=== PATIENT | male | born 1960 | race Caucasian/White ===

== ENCOUNTER 2016-08-03 12:52 | Inpatient (IN) | payer MEDICARE ==
[~2016-08-03] VITALS: Ht 188 cm; Wt 75.6 kg
[~2016-08-03 12:52] MED LIST: /MIRT30TA OR; AMBI10TA PO; ATOM40CA OR; EFFE150C OR; EFFEXOR PO; KEPP1000 PO; KEPP250T5 PO; NAPR500T OR; No home medications; PAXI20TA3 PO; PROZ10CA7 PO; TOPA100T8 PO; TOPI100T OR; TRAZ100T2 PO; ZOMI2.5T4 PO
[2016-08-03 14:07] LABS: BASO # 0.1 K/mm3 (0.0-0.2); BASO % 0.8 % (0.0-1.0); EOS # 0.2 K/mm3 (0.0-0.50); EOS % 1.8 % (0.0-3.0); LARGE UNSTAINED CELL # 0.2 K/mm3 (0.0-0.4); LARGE UNSTAINED CELL % 1.9 % (0.0-4.0); LYMPH # 2.8 K/mm3 (1.5-4.5); LYMPH % 29.2 % (24.0-44.0); MEAN CORPUSCULAR HEMOGLOBIN 31.6 pg (27.0-33.0); MEAN CORPUSCULAR HGB CONC 33.8 g/dl (32.0-36.5); MEAN CORPUSCULAR VOLUME 93.5 fl (80.0-96.0); MONO # 0.5 K/mm3 (0.0-0.8); NEUTROPHILS # 5.9 K/mm3 (1.8-7.7); NEUTROPHILS % 61.4 % (36.0-66.0); PLATELET COUNT, AUTOMATED 261 k/mm3 (150-450); RED CELL DISTRIBUTION WIDTH 12.4 % (11.5-14.5); WHITE BLOOD COUNT 9.7 K/mm3 (4.0-10.0)
--- NOTE | 2016-08-03 14:24 | REP ---
PORTABLE CHEST, TWO VIEWS: HISTORY: Chest pain. COMPARISON: 10/17/2014 The lungs are hyperinflated. An increase in the interstitial markings is present in the lungs. The heart is normal in size. The pulmonary vasculature is normal in appearance. IMPRESSION: COPD. Signed by Vipin Delarosa MD 08/03/2016 02:28 P
[2016-08-03 14:31] LABS: ANION GAP 10 MEQ/L (8-16); BLOOD UREA NITROGEN 12 MG/DL (7-18); CARBON DIOXIDE LEVEL 26 MEQ/L (21-32); CHLORIDE LEVEL 104 MEQ/L (98-107); CREATININE FOR GFR 1.13 MG/DL (0.70-1.30); GLOMERULAR FILTRATION RATE > 60.0 (>56); GLUCOSE, FASTING 90 MG/DL (70-105); POTASSIUM SERUM 3.1 MEQ/L (3.5-5.1); SODIUM LEVEL 140 MEQ/L (136-145)
[2016-08-03 15:52] LABS: AST/SGOT 13 U/L (15-37); BILIRUBIN,TOTAL 0.5 MG/DL (0.2-1.0); TOTAL PROTEIN 7.4 GM/DL (6.4-8.2)
[2016-08-03 15:54] LABS: INR 1.19
[2016-08-03 16:05] LABS: ALKALINE PHOSPHATASE 71 U/L (45-117); ALT/SGPT 14 U/L (12-78); BILIRUBIN,DIRECT 0.1 MG/DL (0.0-0.2)
--- NOTE | 2016-08-03 16:12 | REP ---
CT Head without contrast HISTORY: Seizure COMPARISON: 12/24/2015 There is no intraparenchymal hemorrhage, acute infarct, mass or midline shift. The ventricular system is normal in appearance. There is no extra cerebral collection. There is no fracture. The visualized sinuses are clear. IMPRESSION: There is no intracranial lesion. Signed by Vipin Delarosa MD 08/03/2016 04:04 P
[2016-08-03] MEDS ORDERED: POTASSIUM CHLORIDE 10 MEQ SR TABLET PO ONE (16:45)
[2016-08-03 17:09] LABS: CONTROL LINE INT CTR LINE PRESENT; METHADONE URINE NEGATIVE (NEGATIVE); TRICYCLIC ANTIDEPRESS URINE NEGATIVE (NEGATIVE)
[2016-08-03] MEDS ORDERED: diphenhydrAMINE 25 MG CAP PO ONE (17:15)
[2016-08-03] MEDS ORDERED: METOCLOPRAMIDE 10 MG TAB PO ONE (17:15)
[2016-08-03] MEDS ORDERED: DIVALPROEX 500MG *ER* TAB PO ONE (17:15)
[2016-08-03] MEDS ORDERED: diphenhydrAMINE 50 MG CAP PO ONE (17:15)
[2016-08-03] MEDS ORDERED: levETIRAcetam 250MG TABLET (KEPPRA) PO ONE (18:00)
[2016-08-03] MEDS ORDERED: KEPP500T6 PO (19:00)
[2016-08-03 20:44] VITALS: BP 143/83
[2016-08-03] MEDS ORDERED: MAALOX 30 ML SUSP *UDC PO PRN (21:30)
[2016-08-03] MEDS ORDERED: QUEtiapine FUMARATE 50 MG TAB PO ONE (21:30)
[2016-08-03 21:47] LABS: ALBUMIN 3.8 GM/DL (3.2-5.2); ALBUMIN/GLOBULIN RATIO 1.06 (1.00-1.93)
[2016-08-04 06:27] VITALS: BP 113/60
[2016-08-04] MEDS: NICOTINE 14 MG/24 HR TRANSDERMAL TD SCH (08:09)
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
[2016-08-04] MEDS ORDERED: traZODone 50 MG TAB PO PRN (12:30)
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
[2016-08-04] MEDS ORDERED: VENLAFAXINE **XR** 37.5 MG CAPSULE PO ONE (12:45)
[2016-08-04 18:00] VITALS: BP 142/90
[2016-08-04] MEDS ORDERED: levETIRAcetam 250MG TABLET (KEPPRA) PO ONE (18:45)
[2016-08-04] MEDS ORDERED: levETIRAcetam 250MG TABLET (KEPPRA) PO SCH (21:00)
--- NOTE | 2016-08-04 21:54 | ECGEPIP ---
Stationary ECG Study [facility] Test Date: 2016-08-04 Pat Name: BHARAT ALBER Department: Room: [place] [address] Gender: M Senior Branch Manager: : 1960 Requested By: Gabi Hoffman Order Number: [id number] Reading MD: Bharat Russell Measurements Intervals [place] Rate: 55 P: 65 OR: 149 QRS: 75 QRSD: 102 T: 64 QT: 441 QTc: 425 Interpretive Statements SINUS BRADYCARDIA MINIMAL VOLTAGE CRITERIA FOR LVH, CONSIDER NORMAL VARIANT Septal Q waves previously noted on tracing from 12-24-15 Electronically Signed On 08-04-2016 21:53:57 EST by Bharat Russell
[2016-08-05 07:14] VITALS: BP 111/57
[2016-08-05] MEDS: NICOTINE 14 MG/24 HR TRANSDERMAL TD SCH (08:17)
[2016-08-05] MEDS: levETIRAcetam 250MG TABLET (KEPPRA) PO SCH ×2 (08:18→20:13)
[2016-08-05] MEDS: VENLAFAXINE **XR** 75MG CAPSULE PO SCH (08:18)
[2016-08-05] MEDS ORDERED: INFLUENZA QUADRIVALENT PF VACCINE 0.5ML SYRINGE/VIAL (90686) IM ONE (09:00)
--- NOTE | 2016-08-05 13:27 | ECGEPIP ---
Stationary ECG Study [facility] - ED Test Date: 2016-08-03 Pat Name: ROMEL CAMPO Department: Room: - Gender: M Pot Fireman: jshan : 1960 Requested By: Chacha Setin Order Number: [id number] Reading MD: Chacha Stein Measurements Intervals [place] Rate: 63 P: 43 GA: 126 QRS: 57 QRSD: 104 T: 45 QT: 427 QTc: 439 Interpretive Statements SINUS RHYTHM ARTIFACT DELAYED R PROGRESSION SIMILAR 12/24/15 Electronically Signed On 08-05-2016 13:27:30 EST by Chacha Stein
[2016-08-05] MEDS: ACETAMINOPHEN TAB 650MG DOSE (2X325MG) PO PRN (17:28)
[2016-08-05 18:00] VITALS: BP 146/71
[2016-08-05] MEDS: MOM 30ML SUSPENSION UDC PO PRN (20:56)
--- NOTE | 2016-08-06 01:58 | IPN ---
DATE: 08/05/2016 56-year-old male with history of depression and polysubstance dependency admitted with symptoms of depression, suicidal ideation, and 10-pound weight loss. MEDICATIONS: - Effexor XR 37.5 mg by mouth every morning - trazodone 50 mg as needed for insomnia SUBJECTIVE: "I feel about the same. I could not sleep well." OBJECTIVE: Patient continues depressed, anxious with psychomotor retardation, sad, restricted facial expression. No evidence of psychotic symptoms. No auditory or visual hallucinations or delusions. Patient is tolerating well Effexor. MENTAL STATUS EXAMINATION: Patient is dressed in [facility]. Patient is cooperative during exam, has poor eye contact, speech is soft and monotone. Mood is depressed and anxious. Affect is restricted. No delusions or hallucinations. Memory is fair. Patient is fully oriented. Concentration is intact. Thinking is logical. Patient is able to contract for safety during the hospitalization and has denied suicidal or homicidal ideation during the interview. Insight and judgment is fair. ASSESSMENT: 1. Depression. 2. Substance abuse, marijuana dependency. PLAN: 1. Increase Effexor to 75 mg by mouth every morning. 2. Continue with trazodone 50 mg by mouth at bedtime as needed for insomnia. 3. Continue medication management, individual and group therapy
[2016-08-06 06:43] VITALS: BP 137/63
[2016-08-06] MEDS: ACETAMINOPHEN TAB 650MG DOSE (2X325MG) PO PRN (08:59)
[2016-08-06] MEDS: levETIRAcetam 250MG TABLET (KEPPRA) PO SCH ×2 (09:00→20:21)
[2016-08-06] MEDS: NICOTINE 14 MG/24 HR TRANSDERMAL TD SCH (09:00)
[2016-08-06] MEDS: VENLAFAXINE **XR** 75MG CAPSULE PO SCH (09:00)
[2016-08-06 18:10] VITALS: BP 163/88
[2016-08-06] MEDS: MOM 30ML SUSPENSION UDC PO PRN (21:30)
[2016-08-07 06:50] VITALS: BP 140/74
[2016-08-07] MEDS: NICOTINE 14 MG/24 HR TRANSDERMAL TD SCH (08:59)
[2016-08-07] MEDS: VENLAFAXINE **XR** 75MG CAPSULE PO SCH (08:59)
[2016-08-07] MEDS: levETIRAcetam 250MG TABLET (KEPPRA) PO SCH ×2 (08:59→21:44)
--- NOTE | 2016-08-07 09:33 | IPN ---
DATE: 08/06/2016 56-year-old male with history of depression and polysubstance dependency admitted with symptoms of depression, suicidal ideation and 10 pound weight loss. MEDICATIONS: - Effexor XR 75 mg by mouth every morning - trazodone 50 mg by mouth nightly as needed for insomnia SUBJECTIVE: "I feel very weak." OBJECTIVE: No major changes. Patient continues with some degree of somatization. Patient continues depressed and anxious with psychomotor retardation, sad restricted facial expression, no psychotic symptoms, no auditory or visual hallucinations, no paranoid delusions. Patient is tolerating well the medication. MENTAL STATUS EXAMINATION: Patient is dressed in [facility]. Patient is cooperative during the interview, has fair eye contact. His speech is slow and monotone. Mood is depressed and anxious. Affect is restricted. Patient denies auditory or visual hallucinations. No delusions. Short-term and long-term memory are fair. Patient is fully oriented. Associations are intact. Thinking is logical. Thought content is appropriate. Patient is able to contract for safety and denies suicidal or homicidal ideation during the interview. Insight and judgment is limited. ASSESSMENT: 1. Depression. 2. Substance abuse/marijuana dependence. PLAN: 1. Continue Effexor XR 75 mg by mouth every morning. 2. Continue trazodone as needed for insomnia. 3. Continue medication management, individual and group therapy.
[2016-08-07 18:00] VITALS: BP 149/83
[2016-08-08 06:26] VITALS: BP 133/66
[2016-08-08] MEDS: NICOTINE 14 MG/24 HR TRANSDERMAL TD SCH (08:10)
[2016-08-08] MEDS: levETIRAcetam 250MG TABLET (KEPPRA) PO SCH ×2 (08:10→22:09)
[2016-08-08] MEDS: VENLAFAXINE **XR** 75MG CAPSULE PO SCH (08:10)
[2016-08-08 08:41] LABS: MEAN CORPUSCULAR HEMOGLOBIN 33.2 pg (27.0-33.0); MEAN CORPUSCULAR VOLUME 97.7 fl (80.0-96.0); RED CELL DISTRIBUTION WIDTH 12.6 % (11.5-14.5); WHITE BLOOD COUNT 7.5 K/mm3 (4.0-10.0)
[2016-08-08 09:17] LABS: ANION GAP 8 MEQ/L (8-16); BLOOD UREA NITROGEN 12 MG/DL (7-18); CALCIUM LEVEL 8.5 MG/DL (8.5-10.1); CARBON DIOXIDE LEVEL 28 MEQ/L (21-32); CHLORIDE LEVEL 103 MEQ/L (98-107); CREATININE FOR GFR 1.06 MG/DL (0.70-1.30); GLOMERULAR FILTRATION RATE > 60.0 (>56); GLUCOSE, FASTING 88 MG/DL (70-105); POTASSIUM SERUM 4.7 MEQ/L (3.5-5.1); SODIUM LEVEL 139 MEQ/L (136-145)
[2016-08-08 10:24] VITALS: BP 140/94
[2016-08-08 16:21] VITALS: BP 161/90
[2016-08-08 16:38] VITALS: BP 145/73
[2016-08-08 18:00] VITALS: BP 144/76
--- NOTE | 2016-08-08 19:52 | IPN ---
DATE: 08/07/2016 A 56-year-old male with depression, suicidal ideation, and 10-pound weight loss. MEDICATIONS: - Effexor XR 75 mg by mouth every morning - trazodone 50 mg as needed for insomnia SUBJECTIVE: "Yesterday was very stressful." OBJECTIVE: No major changes. Patient continues to report depression and intermittent suicidal thoughts. Reports high anxiety. He is trying to figure out where he is going to end up living, since he cannot afford to pay the apartment, and department of social work msw ([employer]) is telling him that he does not qualify because he has an income. MENTAL STATUS EXAMINATION: Patient is dressed in [facility]. Patient is cooperative during the interview. Has fair eye contact. Speech is slow and monotone. Mood is depressed and anxious. Affect is restricted. Patient denies auditory or visual hallucinations. No delusions. Short and long-term memory are fair. Patient is fully oriented. Associations are intact. Thinking is logical. Thought content is appropriate. Patient is able to contract for safety and denies suicidal or homicidal ideation during the interview. Insight and judgment are limited. ASSESSMENT: 1. Depression. 2. Substance abuse/marijuana dependency. PLAN: 1. Continue with Effexor XR 75 mg by mouth every morning 2. Continue with trazodone 50 mg by mouth at bedtime as needed for insomnia. 3. Continue medication management, individual and group therapy.
[2016-08-09 06:26] VITALS: BP 131/63
[2016-08-09] MEDS: NICOTINE 14 MG/24 HR TRANSDERMAL TD SCH (09:00)
--- NOTE | 2016-08-09 09:43 | IPN ---
DATE OF SERVICE: 08/08/2016 56-year-old male with history of depression, polysubstance dependence being admitted for symptoms of depression, suicidal ideation and weight loss. MEDICATIONS: - Effexor XR 75 mg by mouth in the morning - trazodone 50 mg by mouth nightly as needed for insomnia SUBJECTIVE: "I am very depressed." OBJECTIVE: The patient is improving slowly. He became very angry and frustrated today when he was discussing his needs with our drug abuse social worker/cyber intel planner. The patient was making statements such as "nobody cares" and was using loud language. It took him significant time to calm down. MENTAL STATUS EXAMINATION: Patient is dressed in [facility]. Patient has poor eye contact. Mood is depressed and anxious. Affect is restricted. No evidence of delusions or hallucinations. Memory is fair. Patient continues to report intermittent suicidal thoughts. Insight and judgment is limited. ASSESSMENT: 1. Depression. 2. Substance abuse. PLAN: 1. Continue with Effexor XR 75 mg by mouth every morning. 2. Continue with trazodone as needed for insomnia. 3. Continue medication management, individual and group therapy.
[2016-08-09] MEDS: levETIRAcetam 250MG TABLET (KEPPRA) PO SCH ×2 (10:53→20:04)
[2016-08-09] MEDS: VENLAFAXINE **XR** 75MG CAPSULE PO SCH (10:53)
[2016-08-09] MEDS: ACETAMINOPHEN TAB 650MG DOSE (2X325MG) PO PRN (10:53)
[2016-08-09] MEDS ORDERED: QUEtiapine FUMARATE 12.5 MG HALF-TAB PO STA (10:59)
[2016-08-09] MEDS: QUEtiapine FUMARATE 12.5 MG HALF-TAB PO PRN (20:03)
[2016-08-09 22:19] VITALS: BP 162/94
--- NOTE | 2016-08-10 06:04 | IPN ---
DATE OF VISIT: 08/09/2016 56-year-old male with history of depression and polysubstance dependency admitted for significant symptoms of depression and suicide ideation. MEDICATIONS: - Effexor XR 75 mg by mouth every morning - trazodone 50 mg by mouth nightly as needed for insomnia SUBJECTIVE: " I have a terrible headache." OBJECTIVE: The patient is staying in bed with his cat Ree and stating that he has a severe headache. Eye contact is very poor. The patient is not engaging in one-to-one contact. The patient reports depression with intermittent suicidal thoughts. The patient reports high anxiety for the last 24 hours. MENTAL STATUS EXAMINATION: The patient is dressed in [facility], has poor eye contact. Mood is depressed and anxious. Affect is restricted. No evidence of delusions or hallucinations. The patient continues to report intermittent suicidal thoughts. Insight and judgment is poor. ASSESSMENT: 1. Depression. 2. Substance abuse. PLAN: 1. Effexor XR 75 mg by mouth every morning. 2. Trazodone as needed for insomnia. 3. Seroquel 12.5 mg by mouth twice a day for anxiety/agitation. 4. Continue with medication management, individual and group therapy.
[2016-08-10 06:13] VITALS: BP 132/83
[2016-08-10] MEDS: IBUPROFEN 600 MG TAB PO PRN (06:30)
[2016-08-10] MEDS: NICOTINE 14 MG/24 HR TRANSDERMAL TD SCH (08:05)
[2016-08-10] MEDS: VENLAFAXINE **XR** 75MG CAPSULE PO SCH (08:06)
[2016-08-10] MEDS: QUEtiapine FUMARATE 12.5 MG HALF-TAB PO PRN ×2 (08:06→13:38)
[2016-08-10] MEDS: levETIRAcetam 250MG TABLET (KEPPRA) PO SCH ×2 (08:06→20:26)
[2016-08-10 18:00] VITALS: BP 140/86
[2016-08-11 06:35] VITALS: BP 115/77
[2016-08-11] MEDS: VENLAFAXINE **XR** 75MG CAPSULE PO SCH (08:06)
[2016-08-11] MEDS: levETIRAcetam 250MG TABLET (KEPPRA) PO SCH ×2 (08:06→20:25)
[2016-08-11] MEDS: QUEtiapine FUMARATE 12.5 MG HALF-TAB PO PRN (08:06)
[2016-08-11] MEDS: IBUPROFEN 600 MG TAB PO PRN ×2 (08:07→20:26)
--- NOTE | 2016-08-11 08:12 | IPN ---
DATE: 08/10/2016 56-year-old male with history of depression and polysubstance dependency admitted with significant symptoms of depression and suicidal thoughts. MEDICATIONS: - Effexor XR 75 mg by mouth every morning - trazodone 50 mg by mouth nightly as needed for insomnia - Seroquel 12.5 mg by mouth three times a day as needed for anxiety/agitation SUBJECTIVE: "I feel very weak and depressed." OBJECTIVE: Patient continues to report high anxiety, depression and feeling stressed by the fact that he has no place to go. Patient is reporting that he no longer can take care of himself and he will need help from now on. Patient reports very low energy and psychomotor retardation. Patient is sleeping better with the help of medication. No evidence of psychotic symptoms. No auditory or visual hallucinations or delusions. Patient has tendency to project blame and is making statements such as "nobody wants to help me." MENTAL STATUS EXAMINATION: Patient dressed in [facility]. Patient has poor eye contact. Speech is slow and monotone. Mood is depressed and anxious. Affect is restricted. No evidence of delusions or hallucinations. Memory is fair. Patient reports intermittent suicidal thoughts. Insight and judgment is limited. ASSESSMENT: 1. Depression. 2. Substance abuse. PLAN: 1. Effexor XR 75 mg by mouth every morning. 2. Trazodone as needed for insomnia. 3. Seroquel 12.5 mg by mouth twice a day for anxiety/agitation.
[2016-08-11] MEDS: NICOTINE 14 MG/24 HR TRANSDERMAL TD SCH (09:00)
[2016-08-11 18:00] VITALS: BP 148/82
--- NOTE | 2016-08-11 19:45 | IPN ---
DATE: 08/11/2016 HISTORY: A 56-year-old male with history of depression, polysubstance dependency, admitted with symptoms of depression and suicidal thoughts. MEDICATIONS: - Effexor XR 75 mg by mouth every morning - trazodone 50 mg by mouth at bedtime as needed for insomnia - Seroquel 12.5 mg by mouth three times a day as needed for anxiety and agitation SUBJECTIVE: "I'm having a headache now." OBJECTIVE: The patient continues to be in bed most of the day. The patient is not interacting with other patients and staff. Facial expression is restricted. The patient reports feeling depressed and having intermittent suicidal thoughts. The patient continues somatizing. No evidence of psychotic symptoms. No auditory or visual hallucinations or delusions. The patient denies side effect from medication. MENTAL STATUS EXAMINATION: The patient is dressed in [facility]. Has poor eye contact. Speech is slow and monotone. Mood is depressed and anxious. Affect is restricted. No evidence of delusions or hallucinations. Memory is fair. Patient is reporting intermittent suicidal thoughts. Insight and judgment are limited. ASSESSMENT: 1. Depression. 2. Substance abuse. PLAN: 1. Effexor XR 75 mg by mouth every morning. 2. Trazodone 50 mg by mouth at bedtime as needed for insomnia. 3. Seroquel 12.5 mg by mouth twice a day as needed for anxiety or agitation.
[2016-08-12 06:39] VITALS: BP 140/78
[2016-08-12] MEDS: NICOTINE 14 MG/24 HR TRANSDERMAL TD SCH (08:03)
[2016-08-12] MEDS: QUEtiapine FUMARATE 12.5 MG HALF-TAB PO PRN (08:07)
[2016-08-12] MEDS: VENLAFAXINE **XR** 75MG CAPSULE PO SCH (08:07)
[2016-08-12] MEDS: levETIRAcetam 250MG TABLET (KEPPRA) PO SCH ×2 (08:07→20:10)
[2016-08-12] MEDS: IBUPROFEN 600 MG TAB PO PRN (08:08)
[2016-08-12 18:00] VITALS: BP 127/66
[2016-08-13 07:04] VITALS: BP 142/67
[2016-08-13] MEDS: NICOTINE 14 MG/24 HR TRANSDERMAL TD SCH (08:03)
[2016-08-13] MEDS: VENLAFAXINE **XR** 75MG CAPSULE PO SCH (08:05)
[2016-08-13] MEDS: levETIRAcetam 250MG TABLET (KEPPRA) PO SCH ×2 (08:05→20:11)
--- NOTE | 2016-08-13 10:28 | IPN ---
DATE: 08/12/2016 56-year-old male with history of depression, polysubstance dependency, admitted for the evaluation of suicidal ideation. MEDICATIONS: - Effexor XR 75 mg by mouth every morning - trazodone 50 mg by mouth nightly as needed for insomnia - Seroquel 12.5 mg by mouth three times a day as needed for anxiety/agitation SUBJECTIVE: "I'm have a headache this morning." OBJECTIVE: No major changes. Patient stays in his room and in bed most of the day, is not interacting with peers or staff. Patient had tendency to project blame. Patient is claiming that he has no longer the ability to care for self. Occupational therapy (OT) consult is in progress. MENTAL STATUS EXAMINATION: Patient is dressed in [facility]. Patient is lying in bed, covering his head with a blanket. Speech is slow and monotone. Mood is depressed and anxious. Affect is restricted. No evidence of delusions or hallucinations. Memory, attention and concentration are fair. Patient continues to report intermittent suicidal thoughts. Denies homicidal ideation. Insight and judgment is limited. ASSESSMENT: 1. Depression. 2. Substance abuse. PLAN: 1. Effexor XR 75 mg by mouth every morning. 2. Trazodone 50 mg by mouth nightly as needed for insomnia. 3. Seroquel 12.5 mg by mouth twice a day as needed for anxiety or agitation.
[2016-08-13 18:00] VITALS: BP 127/85
[2016-08-13] MEDS: LORATADINE 10 MG TAB PO SCH (18:02)
[2016-08-13] MEDS: IBUPROFEN 600 MG TAB PO PRN (18:03)
[2016-08-13] MEDS: QUEtiapine FUMARATE 12.5 MG HALF-TAB PO PRN (22:05)
[2016-08-14 06:48] VITALS: BP 125/71
[2016-08-14] MEDS: IBUPROFEN 600 MG TAB PO PRN ×2 (08:08→20:18)
[2016-08-14] MEDS: VENLAFAXINE **XR** 75MG CAPSULE PO SCH (08:08)
[2016-08-14] MEDS: LORATADINE 10 MG TAB PO SCH (08:08)
[2016-08-14] MEDS: QUEtiapine FUMARATE 12.5 MG HALF-TAB PO PRN ×2 (08:08→20:17)
[2016-08-14] MEDS: levETIRAcetam 250MG TABLET (KEPPRA) PO SCH ×2 (08:09→20:17)
[2016-08-14] MEDS: NICOTINE 14 MG/24 HR TRANSDERMAL TD SCH (09:00)
[2016-08-14 18:00] VITALS: BP 135/68
[2016-08-15 06:27] VITALS: BP 131/70
[2016-08-15] MEDS: QUEtiapine FUMARATE 12.5 MG HALF-TAB PO PRN ×3 (08:00→20:16)
[2016-08-15] MEDS: levETIRAcetam 250MG TABLET (KEPPRA) PO SCH ×2 (08:01→20:16)
[2016-08-15] MEDS: VENLAFAXINE **XR** 75MG CAPSULE PO SCH (08:01)
[2016-08-15] MEDS: LORATADINE 10 MG TAB PO SCH (08:01)
[2016-08-15] MEDS: NICOTINE 14 MG/24 HR TRANSDERMAL TD SCH (08:01)
[2016-08-15] MEDS: IBUPROFEN 600 MG TAB PO PRN ×2 (13:59→22:11)
[2016-08-15 18:00] VITALS: BP 130/82
[2016-08-16 06:37] VITALS: BP 154/92
--- NOTE | 2016-08-16 06:40 | IPN ---
DATE: 08/15/2016 56-year-old male with history of depression, polysubstance abuse, admitted for evaluation of suicidal ideation. SUBJECTIVE: Patient is extremely angry. He states that he has been prescribed Keppra and that is makes him extremely sleepy. He states he was prescribed it previously but never took it once he left the hospital. He states that he needs managed care and would like his Keppra dose reduced. MENTAL STATUS EXAMINATION: Patient was very pleasant with me and laughed. He was initially angry at his treatment but calmed down significantly and discussed his extensive electrical bill and his need for managed care. His appearance was appropriate. His eye contact was good. His speech volume was a bit high. His articulation was good. No difficulties in language. Mood was irritable. Affect was pleasant. He presently denied hallucinations, delusions. Had no difficulties with recent or remote memory. He was fully oriented. Had no loose associations. Denied suicidal or homicidal ideation. Seems to have medium judgment. MEDICATIONS: - Keppra still active at 1500 mg daily twice a day - as needed Seroquel - as needed trazodone - Effexor was at 75 mg in the morning . I increased it to 150 due to his irritable mood and that he sensed that the medication was not helping him. Placement will become an issue due to patient's financial difficulties. I will discuss Keppra dose with Dr. Hoffman in the morning. [facility]
[2016-08-16] MEDS: IBUPROFEN 600 MG TAB PO PRN (08:20)
[2016-08-16] MEDS: levETIRAcetam 250MG TABLET (KEPPRA) PO SCH ×2 (08:20→20:16)
[2016-08-16] MEDS: VENLAFAXINE **XR** 75MG CAPSULE PO SCH (08:20)
[2016-08-16] MEDS: NICOTINE 14 MG/24 HR TRANSDERMAL TD SCH (08:21)
[2016-08-16] MEDS: QUEtiapine FUMARATE 12.5 MG HALF-TAB PO PRN ×2 (08:21→21:52)
[2016-08-16 18:00] VITALS: BP 133/77
--- NOTE | 2016-08-16 19:30 | IPN ---
DATE: 08/16/2016 This is a 56-year-old male with history of depression, polysubstance abuse who is admitted for suicidal ideation. SUBJECTIVE: The patient is less angry today. He is concerned that his current dose is high and it is making him sleepy, but we did discuss that his use of Seroquel in the morning is probably the cause. His concern and our concern is that he was not compliant with Keppra and had seizures prior to this admission. I will consider a mild reduction of the dose until his neurological followup is done. MENTAL STATUS EXAM: The patient continues very pleasant to talk with. His eye contact was good. His speech and volume was normal. His articulation was normal. He had no difficulty with speech or languages. Mood was pleasant. Affect was bright. He denies hallucinations, delusions and had no difficulties with recent or remote memory. His judgment seems fair. He continues to have difficulties with housing issues which was some concern with his discharge planning. MEDICATIONS: His present medications are Keppra 1500 mg twice a day, Seroquel as needed for agitation. He is on venlafaxine 150 mg and his mood is improved. He is on trazodone as needed for insomnia. ASSESSMENT: Depression. Seizure disorder.
[2016-08-17 06:00] VITALS: BP 144/81
[2016-08-17] MEDS: NICOTINE 14 MG/24 HR TRANSDERMAL TD SCH (08:15)
[2016-08-17] MEDS: VENLAFAXINE **XR** 75MG CAPSULE PO SCH (08:15)
[2016-08-17] MEDS: levETIRAcetam 250MG TABLET (KEPPRA) PO SCH ×2 (08:15→20:06)
[2016-08-17] MEDS: IBUPROFEN 600 MG TAB PO PRN ×2 (08:15→20:07)
--- NOTE | 2016-08-17 13:11 | IPN ---
DATE: 08/17/2016 This 56-year-old male with history of depression and polysubstance abuse was admitted for suicidal ideation. The patient continues in a good mood. We discussed again his current dose of Keppra which he was concerned was making him sleepy. I have reduced it by 250 mg for a dose of 1250 mg in the morning and 1500 mg in the evening. He did not use his Seroquel this morning and we are watching his sleepiness. He does not appear sleepy to me, but complains of it. My concern is to find dosages to keep him compliant with Keppra and to make sure his seizures are controlled. MENTAL STATUS EXAMINATION: The patient is pleasant. Eye contact is good. Articulation is normal. He had no difficulty with language or speech. His mood is pleasant. Affect is bright. He denies hallucinations, delusions, obsessions, compulsions or phobias and has had no difficulty with recent, immediate or remote memory. His judgment seems fair. He continues to have difficulty with housing as has been noted. Present medications have not changed except for Keppra dose as discussed. ASSESSMENT: 1. Depression. 2. Seizure disorder.
[2016-08-17] MEDS: QUEtiapine FUMARATE 12.5 MG HALF-TAB PO PRN ×2 (15:50→20:06)
[2016-08-17 18:00] VITALS: BP 144/82
[2016-08-18 06:22] VITALS: BP 120/68
[2016-08-18] MEDS: VENLAFAXINE **XR** 75MG CAPSULE PO SCH (12:45)
[2016-08-18] MEDS: levETIRAcetam 250MG TABLET (KEPPRA) PO SCH ×2 (12:52→22:27)
[2016-08-18] MEDS: NICOTINE 14 MG/24 HR TRANSDERMAL TD SCH (12:53)
[2016-08-18] MEDS: QUEtiapine FUMARATE 12.5 MG HALF-TAB PO PRN ×2 (15:30→22:27)
[2016-08-18] MEDS ORDERED: VENLAFAXINE **XR** 75MG CAPSULE PO ONE (17:00)
[2016-08-18 18:00] VITALS: BP 146/69
--- NOTE | 2016-08-18 18:25 | IPN ---
DATE: 08/18/2016 SUBJECTIVE: This is a 56-year-old male with history of depression, polysubstance abuse, admitted for suicidal ideation. The patient is discussing his placement. He seems oppositional to all suggestions from discharge planning. He states he has put in calls to numerous groups that assist in housing. He states that he will not make any progress in speaking to the [employer] with his bills. He is angry and irritable and states that he is being pushed to come up with an idea of discharge. He states, "this place has a length of stay of 50 days and I haven't been here that long." I reduced, as noted yesterday, his dose of Keppra which also was of concern to him. The patient is concerned if he is placed in a motel he will not be able to get to town and his money will run out. If he is placed local in a hotel, he feels his money will also be short-lived. MENTAL STATUS EXAMINATION: The patient is irritable. Eye contact was good. Articulation of speech is normal. Mood is irritable. Affect is neutral. He denies hallucinations, delusions, obsessions, compulsions or phobias. Had no difficulty with recent, immediate or remote memory. His judgment seems fair to poor. He continues to have difficulty with housing as noted, and there is no change in his present medication except for Keppra which has been mentioned. ASSESSMENT: The patient is not demonstrating significant symptoms of mental illness at this time, and a placement of this patient is now the main difficulty as he does not want to leave the hospital and is not significantly helping with ideas for living arrangements and is, in fact, oppositional to those ideas. 1. Depression. 2. Seizure disorder. 3. Personality disorder MTDD
[2016-08-19 07:45] VITALS: BP 183/108
[2016-08-19] MEDS: VENLAFAXINE **XR** 75MG CAPSULE PO SCH (08:42)
[2016-08-19] MEDS: levETIRAcetam 250MG TABLET (KEPPRA) PO SCH ×2 (08:43→20:06)
[2016-08-19] MEDS: NICOTINE 14 MG/24 HR TRANSDERMAL TD SCH (08:47)
[2016-08-19] MEDS: QUEtiapine FUMARATE 12.5 MG HALF-TAB PO PRN ×2 (13:34→20:06)
[2016-08-19] MEDS: IBUPROFEN 600 MG TAB PO PRN (13:35)
[2016-08-19 18:00] VITALS: BP 135/90
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
[2016-08-20 06:43] VITALS: BP 123/56
[2016-08-20] MEDS: VENLAFAXINE **XR** 75MG CAPSULE PO SCH (08:12)
[2016-08-20] MEDS: QUEtiapine FUMARATE 12.5 MG HALF-TAB PO PRN ×3 (08:12→23:46)
[2016-08-20] MEDS: levETIRAcetam 250MG TABLET (KEPPRA) PO SCH ×2 (08:12→20:04)
[2016-08-20] MEDS: IBUPROFEN 600 MG TAB PO PRN ×2 (08:13→20:06)
[2016-08-20] MEDS: NICOTINE 14 MG/24 HR TRANSDERMAL TD SCH (08:13)
[2016-08-20 18:00] VITALS: BP 135/82
[2016-08-21 06:51] VITALS: BP 128/67
[2016-08-21] MEDS: NICOTINE 14 MG/24 HR TRANSDERMAL TD SCH (08:16)
[2016-08-21] MEDS: levETIRAcetam 250MG TABLET (KEPPRA) PO SCH ×2 (08:16→20:06)
[2016-08-21] MEDS: VENLAFAXINE **XR** 75MG CAPSULE PO SCH (08:16)
[2016-08-21] MEDS: IBUPROFEN 600 MG TAB PO PRN (08:20)
[2016-08-21 18:00] VITALS: BP 133/71
[2016-08-21] MEDS: QUEtiapine FUMARATE 12.5 MG HALF-TAB PO PRN (19:44)
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
[2016-08-22 06:42] VITALS: BP 144/85
[2016-08-22] MEDS: NICOTINE 14 MG/24 HR TRANSDERMAL TD SCH (08:32)
[2016-08-22] MEDS: levETIRAcetam 250MG TABLET (KEPPRA) PO SCH ×2 (08:36→20:01)
[2016-08-22] MEDS: VENLAFAXINE **XR** 75MG CAPSULE PO SCH (08:37)
[2016-08-22] MEDS: IBUPROFEN 600 MG TAB PO PRN ×2 (08:37→20:01)
[2016-08-22] MEDS: QUEtiapine FUMARATE 12.5 MG HALF-TAB PO PRN ×2 (12:43→20:01)
--- NOTE | 2016-08-22 14:52 | IPN ---
DATE OF SERVICE: 08/22/2016 Mr. Murray today [facility] with [facility]. They have "no beds for me." He is waiting decision from [facility] of whether they have a place for him to stay. His main concern is that he needs someone to watch over him and that he has a place to stay. His mood has improved. His affect is brighter. He is less irritable today. He is less angry, and he is less complaining; and he is, at my request, participating in group, and I see no indications of morning tiredness. His present medications are venlafaxine 225 mg every day, Keppra 1000 mg in the morning and 1500 mg in the evening. He is on Seroquel as needed, trazodone as needed. No change in medications suggested at this time. DIAGNOSES: 1. Major depressive illness. 2. Seizure disorder Mental Status: appearance is pleasant. Eye contact is good. Speech is normal volume and articulation. Mood improved. Affect neutral to bright. He denies hallucinations, delusions. No difficulties with memory. He is fully oriented in three spheres. No loose associations or noted thought disorders. He denies suicidal or homicidal ideation. His judgment is fair. DIAGNOSIS: Major depressive disorder. MTDD
[2016-08-22 18:00] VITALS: BP 130/63
[2016-08-23 06:34] VITALS: BP 119/58
[2016-08-23] MEDS: NICOTINE 14 MG/24 HR TRANSDERMAL TD SCH (08:18)
[2016-08-23] MEDS: VENLAFAXINE **XR** 75MG CAPSULE PO SCH (08:19)
[2016-08-23] MEDS: levETIRAcetam 250MG TABLET (KEPPRA) PO SCH ×2 (08:19→20:02)
[2016-08-23] MEDS: QUEtiapine FUMARATE 12.5 MG HALF-TAB PO PRN ×2 (08:19→18:02)
[2016-08-23] MEDS: LORazepam 2 MG TAB PO SCH ×2 (13:28→21:52)
--- NOTE | 2016-08-23 15:13 | IPN ---
DATE: 08/23/2016 Bharat Murray is feeling well today. He had no significant complaints. He has no significant sedation that he had complained about frequently during his stay here. He is socializing, and he is planning to hear from transitional living for his housing. DIAGNOSES: 1. Major depressive illness. 2. Seizure disorder. MENTAL STATUS: Appearance is pleasant. Eye contact is good. Speech was normal volume and articulation. He had less irritability. His mood was improved. His affect was neutral. He denies hallucinations, delusions, obsessive-compulsives, or phobias. No difficulties with memory. He is fully oriented in three spheres. No loose associations or thought disorders noted. He denies suicidal or homicidal ideation. His judgment is fair. DIAGNOSES: 1. Major depressive disorder. 2. Marijuana use. 3. Seizure disorder. He is presently on venlafaxine 225 mg daily, Keppra 1000 mg in the morning, 1500 mg in the evening.
[2016-08-23 18:00] VITALS: BP 128/70
[2016-08-23] MEDS: IBUPROFEN 600 MG TAB PO PRN (18:03)
[2016-08-24 06:18] VITALS: BP 145/65
[2016-08-24] MEDS: NICOTINE 14 MG/24 HR TRANSDERMAL TD SCH (08:04)
[2016-08-24] MEDS: VENLAFAXINE **XR** 75MG CAPSULE PO SCH (08:05)
[2016-08-24] MEDS: levETIRAcetam 250MG TABLET (KEPPRA) PO SCH ×2 (08:05→20:04)
[2016-08-24] MEDS: LORazepam 2 MG TAB PO SCH ×2 (08:05→20:04)
[2016-08-24] MEDS: QUEtiapine FUMARATE 12.5 MG HALF-TAB PO PRN ×2 (13:19→22:45)
[2016-08-24] MEDS: IBUPROFEN 600 MG TAB PO PRN (13:20)
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
[2016-08-24 18:34] VITALS: BP 140/80
[2016-08-25 06:41] VITALS: BP 113/57
[2016-08-25] MEDS: IBUPROFEN 600 MG TAB PO PRN (08:17)
[2016-08-25] MEDS: VENLAFAXINE **XR** 75MG CAPSULE PO SCH (08:17)
[2016-08-25] MEDS: LORazepam 2 MG TAB PO SCH ×2 (08:18→20:18)
[2016-08-25] MEDS: levETIRAcetam 250MG TABLET (KEPPRA) PO SCH ×2 (08:18→20:19)
[2016-08-25] MEDS: NICOTINE 14 MG/24 HR TRANSDERMAL TD SCH (08:19)
[2016-08-25] MEDS: QUEtiapine FUMARATE 12.5 MG HALF-TAB PO PRN ×2 (13:18→20:18)
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
[2016-08-25 18:00] VITALS: BP 127/92
[2016-08-25] MEDS ORDERED: VENL150C43 PO (18:34)
[2016-08-25] MEDS ORDERED: VENL75CA PO (18:34)
[2016-08-25] MEDS ORDERED: QUET1TAB7 PO (18:34)
[2016-08-25] MEDS ORDERED: TRAZO50TA PO (18:34)
[2016-08-26 06:25] VITALS: BP 128/58
[2016-08-26] MEDS: NICOTINE 14 MG/24 HR TRANSDERMAL TD SCH (08:09)
[2016-08-26] MEDS: LORazepam 2 MG TAB PO SCH (08:11)
[2016-08-26] MEDS: QUEtiapine FUMARATE 12.5 MG HALF-TAB PO PRN (08:12)
[2016-08-26] MEDS: levETIRAcetam 250MG TABLET (KEPPRA) PO SCH (08:12)
[2016-08-26] MEDS: VENLAFAXINE **XR** 75MG CAPSULE PO SCH (08:12)
[2016-08-26] MEDS ORDERED: KEPP500T6 PO (08:18)
[2016-08-26] MEDS ORDERED: NICO14PA TD (08:18)
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
== END 2016-08-26 10:50 | disposition home or self-care (01) | DRG 881 ==
LOC: M ED 15:41 → M PSY 20:52
PROVIDERS: ADMIT Psychiatry & Neurology Psychiatry; ATTEND Psychiatry & Neurology Psychiatry
DX: F32.9 Major depressive disorder, single episode, unspecified (principal); G40.909 Epilepsy, unspecified, not intractable, without status epilepticus; Z88.0 Allergy status to penicillin; Z88.8 Allergy status to other drugs, medicaments and biological substances; F17.200 Nicotine dependence, unspecified, uncomplicated; I25.2 Old myocardial infarction; Z86.73 Personal history of transient ischemic attack (TIA), and cerebral infarction without residual deficits

== ENCOUNTER 2019-11-03 12:40 | Emergency (ER) | payer MEDICARE, MEDICAID ==
[~2019-11-03] VITALS: Ht 188 cm; Wt 84.1 kg
[~2019-11-03 12:40] MED LIST changes: -/MIRT30TA OR; -KEPP1000 PO; +KEPP10002 PO; +KEPP1TAB PO; +MIRT1TAB21 OR; +NICO14PA TD; +QUET1TAB7 PO; +TOPA100T12 PO; -TOPA100T8 PO; +TRAZ1TAB10 PO; +VENL150C43 PO; +VENL75CA2 PO
[2019-11-03 13:35] LABS: HEMATOCRIT 40.5 % (42.0-52.0); HEMOGLOBIN 14.1 g/dl (13.5-17.5); MEAN CORPUSCULAR HEMOGLOBIN 31.9 pg (27.0-33.0); MEAN CORPUSCULAR HGB CONC 34.8 g/dl (32.0-36.5); MEAN CORPUSCULAR VOLUME 91.6 fl (80.0-96.0); PLATELET COUNT, AUTOMATED 214 10^3/uL (150-450); RED BLOOD COUNT 4.42 10^6/uL (4.30-6.10); WHITE BLOOD COUNT 7.4 10^3/uL (4.0-10.0)
[2019-11-03 14:10] LABS: ATYPICAL LYMPH 10 % (0-5); EOSINOPHILS 5 % (0-3); LYMPHOCYTES 22 % (16-44); MONOCYTES 10 % (0-5); NEUTROPHILS 52 % (28-66)
[2019-11-03 14:11] LABS: ANISOCYTOSIS 1+; PLATELET ESTIMATE NORMAL (NORMAL)
--- NOTE | 2019-11-03 14:28 | REP ---
CHEST: Two views. COMPARISON: 10/17/2014 There is no evidence of acute infiltrate. No pleural effusion is seen. The heart is normal in size. The mediastinal silhouette is unremarkable. The visualized osseous structures are intact. IMPRESSION: No acute pulmonary disease. Electronically Signed by Harpreet Redd MD 11/03/2019 02:31 P
[2019-11-03 15:00] VITALS: BP 167/93
--- NOTE | 2019-11-03 19:53 | ECGEPIP ---
[facility] - ED Test Date: 2019-11-03 Pat Name: ROMEL NOEZHEN Department: Room: - Gender: Male Rag Boiler: [place] : 1960 Requested By: ROMEL Maloney Order Number: [id number] Reading MD: Chacha Stein Measurements Intervals Prince Rate: 73 P: 42 NJ: 136 QRS: 49 QRSD: 114 T: 25 QT: 393 QTc: 436 Interpretive Statements SINUS RHYTHM MINIMAL VOLTAGE CRITERIA FOR LVH, CONSIDER NORMAL VARIANT SEPTAL MYOCARDIAL INFARCTION, OF INDETERMINATE AGE NSTTW abnormalities Electronically Signed on 11-03-2019 19:53:44 EDT by Chacha Stein
== END 2019-11-03 15:11 | disposition home or self-care (01) ==
LOC: M ED 12:40
DX: J06.9 Acute upper respiratory infection, unspecified (principal); I25.10 Atherosclerotic heart disease of native coronary artery without angina pectoris; F41.9 Anxiety disorder, unspecified; F32.9 Major depressive disorder, single episode, unspecified; F17.200 Nicotine dependence, unspecified, uncomplicated; G43.909 Migraine, unspecified, not intractable, without status migrainosus; G40.909 Epilepsy, unspecified, not intractable, without status epilepticus; I10 Essential (primary) hypertension; Z11.59 Encounter for screening for other viral diseases; Z88.0 Allergy status to penicillin; Z88.5 Allergy status to narcotic agent; Z88.8 Allergy status to other drugs, medicaments and biological substances
CPT/HCPCS: 36415; 71046; 80047; 85025; 87486; 87581; 87633; 87798; 93005; 99284; U0003

== ENCOUNTER → 2019-11-08 | Outpatient (REF) | payer MEDICARE, MEDICAID ==
[~2019-11-08] MED LIST changes: -QUET1TAB7 PO; +QUET25TA3 PO
[2019-11-08 17:38] LABS: CHOLESTEROL RISK RATIO 10.333 (<5)
[2019-11-08 18:56] LABS: HEMOGLOBIN A1c 5.9 %
== END ==
LOC: M SFHCPLAZ 14:03
DX: F33.1 Major depressive disorder, recurrent, moderate (principal)
CPT/HCPCS: 36415; 80061; 83036; G0463